=== PATIENT | male | born 1975 | race Caucasian/White ===

== ENCOUNTER → 2016-09-19 | Day surgery (SDC) | payer BC ==
[~2016-09-19] MED LIST: ESOM40CA PO; IV RINGERS,LACTATED 1000ML 1,000 ML IV SCH; LIDOCAINE 1% 1 ML SYRINGE. ID PRN; LIDOCAINE 2% PF Vial for OR 5 ML VIAL. ONE; MIDAZOLAM HCL/PF 2 MG/2 ML VIAL. IV PRN; PROPOFOL 20 ML IV ONE; PROPOFOL 40 ML IV ONE; fentaNYL PF VIAL 100 MCG/2 ML VIAL IV PRN
[2016-09-19 08:10] VITALS: BP 104/70
--- NOTE | 2016-09-22 13:35 | PATHOLOGY ---
PATHOLOGY REPORT * * * * * * * * FINAL DIAGNOSIS: A. Esophageal biopsy, distal esophagus: - Segments of hyperplastic squamous esophageal mucosa, consistent with reflux esophagitis. B. Esophageal biopsy, proximal esophagus: - Segments of mildly hyperplastic squamous esophageal mucosa and gastric mucosa consistent with gastric heterotopia. C. Colorectal biopsy, rectal polyps: - Hyperplastic polyp. - Tubular adenoma. COMMENT: Sections of the distal esophageal biopsy reveal segments of focally tangentially-oriented, hyperplastic squamous esophageal mucosa. There are focal intraepithelial eosinophils. The findings are consistent with reflux esophagitis. Sections of the proximal esophageal biopsy reveal segments of mildly hyperplastic squamous esophageal mucosa and gastric mucosa showing congestion and mild chronic inflammation, consistent with gastric heterotopia. There is no evidence of intestinal metaplasia, dysplasia, or malignancy. Sections of the rectal biopsies reveal several segments of hyperplastic polyp and a single segment of tubular adenoma. There is no high grade dysplasia or evidence of malignancy. (JPM:mml; d/t: 09/22/2016) REPORT ELECTRONICALLY SIGNED BY: George Meeks M.D. DATE/TIME: 09/22/2016 13:34 * * * * * * * * GROSS PATHOLOGY: A. Received in formalin labeled "Rajiv Dangelo, distal esophagus," are multiple segments of andres soft tissue measuring from 0.1 up to 0.3 cm in maximum dimension. The specimen is submitted entirely in cassette A1. B. Received in formalin labeled "proximal esophagus," are multiple segments of andres soft tissue measuring from less than 0.1 up to 0.3 cm in maximum dimension. The specimen is submitted entirely in cassette B1. C. Received in formalin labeled "rectal polyps," are two segments of andres soft tissue each measuring 0.3 cm in maximum dimension. The specimen is submitted entirely in cassette C1. ([facility]; 09/19/16) INITIAL CPT CODE(S): A; 65108 B; 36097 C; 62730 Professional services performed by [employer] at [facility] [address] [place] [address] Technical services performed by [employer] at [address] [place] [address], [address], [place] [address]. SPECIMEN(S) RECEIVED: A.Distal esophagus B.Proximal esophagus C.Rectal polyps CLINICAL HISTORY: Abdominal pain PATIENT: RAJIV DANGELO /AGE: 1001/08/1975 (Age: 41) PATIENT #: [id number] ALT CASE #: SPECIMEN COLLECTION DATE: 09/19/2016 SPECIMEN RECEIVED DATE: 09/19/2016 [facility] - [address] [place] [address] - PHONE: [phone] * * * END OF REPORT * * *
== END | disposition home or self-care (01) ==
LOC: ENDOS 06:01
PROVIDERS: ATTEND Internal Medicine Gastroenterology
DX: K64.0 First degree hemorrhoids (principal); K62.1 Rectal polyp; K21.0 Gastro-esophageal reflux disease with esophagitis; K29.50 Unspecified chronic gastritis without bleeding; Z88.0 Allergy status to penicillin; Z83.3 Family history of diabetes mellitus; Z82.49 Family history of ischemic heart disease and other diseases of the circulatory system; Z72.89 Other problems related to lifestyle; F17.210 Nicotine dependence, cigarettes, uncomplicated
CPT/HCPCS: 43239; 45380; 88305; J2704